=== PATIENT | female | born 1970 | race Caucasian/White ===

== ENCOUNTER 2022-09-16 12:02 | Emergency (ER) | payer BC, SELFPAY ==
[2022-09-16 12:44] VITALS: BP 106/82; PULSE 119; RESP 18; TEMP 37.1; O2SAT 99
[2022-09-16 12:46] VITALS: BP 106/82; PULSE 119; RESP 18; TEMP 37.1; O2SAT 99
--- NOTE | 2022-09-16 13:46 | ED.URI ---
HPI - URI/Sore Throat General Chief Complaint: Upper Respiratory Infection Stated Complaint: Sore Throat,Cough,Bilateral Ear Irritation Time Seen by Provider: 09/16/22 13:37 Source: patient Mode of arrival: ambulatory Limitations: no limitations History of Present Illness HPI Narrative: Patient presents today complaining of cough, headache, postnasal drip, congestion, bilateral ear pressure since yesterday. Denies fever shortness of breath. Daughter was diagnosed with influenza a 2 days ago. She has been taking Tylenol and increasing her fluids. History of asthma. Related Data Home Medications Medication Instructions Recorded Confirmed No Home Medications 09/16/22 09/16/22 Allergies Allergy/AdvReac Type Severity Reaction Status Date / Time codeine Allergy Intermediate confusion Verified 09/16/22 12:45 Review of Systems Review of Systems: CONSTITUTIONAL: Denies body aches, fever, chills, or sweats. EYES: Denies visual changes, redness, or discharge. ENT: Denies rhinorrhea, sore throat, or otalgia.+ congestion, postnasal drip, bilateral ear pressure CARDIOVASCULAR: Denies chest pain, palpitations, or edema. RESPIRATORY: Denies dyspnea.+ cough GASTROINTESTINAL: Denies abdominal pain, nausea, vomiting, or diarrhea. GENITOURINARY: Denies dysuria or hematuria. SKIN: Denies rash, itching, or wounds. MUSCULOSKELETAL: Denies back pain, joint pain, or myalgia. NEUROLOGIC: Denies numbness, tingling, or weakness.+ headache PSYCH: Denies depression or anxiety. [facility]LY [facility] Past Medical History Medical History (Updated 09/16/22 @ 13:53 by Aura Rivera, [facility], ) Asthma Comments At time of signature, I have reviewed and agree with nursing past medical, surgical, social and family history unless otherwise noted. Please see nursing chart for further information. There is no relevant family history pertinent to the presenting complaint Exam Narrative: GENERAL: Well-appearing, well-nourished, and in no acute distress. HEAD: Normocephalic, atraumatic. EYES: EOMI. No redness or drainage. Conjunctivae normal. ENT: Mucous membranes pink and moist. Nares clear. No rhinorrhea. TMs normal bilaterally. Throat normal. Uvula midline. NECK: Normal AROM. Supple. No lymphadenopathy. CHEST: No respiratory distress. Clear to auscultation. HEART: Regular rate and rhythm. No murmur appreciated. Normal peripheral pulses. EXTREMITIES: Normal range of motion. No edema. SKIN: Warm, dry, no rash. Capillary refill normal. Normal skin turgor. NEURO: No focal deficits. Alert and oriented x3. Gait steady. PSYCH: Normal affect. No signs of depression or anxiety. Course Course Level of Care: Express Care Visit Vital Signs Vital signs: Vital Signs Temperature 98.7 F 09/16/22 12:44 Pulse Rate 119 H 09/16/22 12:44 Respiratory Rate 18 09/16/22 12:44 Blood Pressure 106/82 09/16/22 12:44 Pulse Oximetry 99 09/16/22 12:44 Oxygen Delivery Room Air 09/16/22 12:44 Temperature 98.7 F 09/16/22 12:46 Pulse Rate 119 H 09/16/22 12:46 Respiratory Rate 18 09/16/22 12:46 Blood Pressure 106/82 09/16/22 12:46 Pulse Oximetry 99 09/16/22 12:46 Oxygen Delivery Room Air 09/16/22 12:46 Reviewed. Pt has been instructed to follow up with her PCP regarding her elevated blood pressure today. MDM - URI/Sore Throat MDM Narrative Medical decision making narrative: Out of flu swabs. Differential Diagnosis Differential diagnosis: Likely upper respiratory infection, otitis media, viral infection and influenza Critical Care Time Critical Care Time Critical Care Time: No Discharge Plan Discharge Clinical Impression: Viral syndrome Patient Disposition: Home, Self-Care Condition: Stable Instructions: Viral Syndrome (ED) Additional Instructions: Your symptoms are likely due to a viral illness, which is not treated with antibiotics. Virus symptoms can last for up to 7-10 days. Take Tylenol or ibupro
== END 2022-09-16 13:56 | disposition home or self-care (01) ==
PROVIDERS: Emergency Provider Nurse Practitioner; PCP Nurse Practitioner Family
DX: B34.9 Viral infection, unspecified (principal); J45.909 Unspecified asthma, uncomplicated
CPT/HCPCS: 99211; G0463